=== PATIENT | male | born 1980 | race Two or more races ===

== ENCOUNTER 2024-10-24 17:45 | Emergency (ER) | payer MEDICAID, OTHER ==
[2024-10-24] MEDS ORDERED: KETOROLAC TROMETH 30 MG/ML 1ML VIAL IV ONE (18:15)
[2024-10-24] MEDS ORDERED: SODIUM CHLORIDE 0.9% 1,000 ML IV ONE (18:15)
--- NOTE | 2024-10-24 18:23 | ED.PDOC ---
General HPI Comments [age] y.o male presents to the ED for a chief complaint of left sided flank pain radiating to his abdomen associated with dysuria and nausea. Patient reports previous similar pain but never followed up for management and it eventually went away on its own. Patient denies any recent injuries, falls, trauma, fever, vomiting, testicle pain, discharge, or hematuria. No B symptoms. No history of SCD. No penile discharge. Chief Complaint: Anxiety Time Seen by MD: 17:56 Reviewed notes: Nurses Notes, Medications, Allergies Allergies: Coded Allergies: NO KNOWN ALLERGIES (Unverified , 10/24/24) Information Source: Patient Mode of Arrival: Ambulatory Severity: Moderate Timing: Days Duration: Since onset Onset: Spontaneous Symptoms: Dysuria History of: None Location: Abdomen, (L)Flank Modifying factors: None associated signs and symptoms: Abdominal Pain, Flank Pain, Dysuria Past Medical History PAST MEDICAL HISTORY: Denies Surgical History: Denies all surgeries Family History Family History: Reviewed,noncontributory to illness Social History Smoker: Non-Smoker Alcohol: Denies ETOH Use Drugs: Denies Drug Use Lives In: Home Constitutional: denies: chills, diaphoresis, fatigue, fever, malaise, sweats, weakness, others EENTM: denies: blurred vision, double vision, ear bleeding, ear discharge, ear drainage, ear pain, ear ringing, eye pain, eye redness, hearing loss, mouth pain, mouth swelling, nasal discharge, nose bleeding, nose congestion, nose pain, photophobia, tearing, throat pain, throat swelling, voice changes, others Respiratory: denies: cough, hemoptysis, orthopnea, SOB at rest, shortness of breath, SOB with excertion, stridor, wheezing, others Cardiovascular: denies: chest pain, dizzy spells, diaphoresis, Dyspnea on exertion, edema, irregular heart beat, left arm pain, lightheadedness, palpitations, PND, syncope, others Gastrointestinal: reports: abdominal pain, nausea; denies: abdomen distended, blood streaked bowels, constipated, diarrhea, dysphagia, difficulty swallowing, hematemesis, melena, poor appetite, poor fluid intake, rectal bleeding, rectal pain, vomiting, others Genitourinary: reports: flank pain; denies: burning, dysuria, frequency, hematu [place], incontinence, penile discharge, penile sore, pain, testicle pain, testicle swelling, urgency, others Neurological: denies: dizziness, fainting, headache, left sided numbness, left sided weakness, numbness, paresthesia, pre-existing deficit, right sided numbness, right sided weakness, seizure, speech problems, tingling, tremors, weakness, others Musculoskeletal: denies: back pain, gout, joint pain, joint swelling, muscle pain, muscle stiffness, neck pain, others Allergic/Immunocompromised: denies: Difficulty Healing, Frequent Infections, Hives, Itching, others Hematologic/Lymphatic: denies: anemia, blood clots, easy bleeding, easy bruising, swollen glands, others Endocrine: denies: excessive hunger, excessive sweating, excessive thirst, excessive urination, flushing, intolerance to cold, intolerance to heat, unexplained weight gain, unexplained weight loss, others Psychiatric: denies: anxiety, bipolar disorder, depression, hopeless, panic disorder, schizophrenia, sleepless, suicidal, others All Other Systems: Reviewed and Negative Physical Exam General Appearance: No Apparent Distress, Normal HEENT: Normal ENT Inspection, Pharynx Normal, TMs Normal Neck: Full Range of Motion, Non-Tender, Normal, Normal Inspection Respiratory: Chest Non-Tender, Lungs Clear, No Accessory Muscle Use, No Respiratory Distress, Normal Breath Sounds Cardiovascular: No Edema, No JVD, No Murmur, No Gallop, Normal Peripheral Pulses, Regular Rate/Rhythm Breast Exam: Deferred Gastrointestinal: No Organomegaly, Non Tender, No Pulsatile Mass, Normal Bowel Sounds, Soft, Other (No CVAT bilaterally, no rashes) Genitalia: Deferred Pelvic: Deferred Rectal: Deferred Extremities: No calf tenderness, Normal capillary refill, Normal inspection, Normal range of motion, Non-tender, No pedal edema Musculoskeletal : Apperance: Normal Neurologic: Alert, kersey department supervisor II-XII nml as Tested, No Motor Deficits, Normal Affect, Normal Mood, No Sensory Deficits Cerebellar Function: NOT DONE Reflexes: NOT DONE Skin: Dry, Normal Color, Warm Lymphatic: No Adenopathy Was a procedure done? Was a procedure done?: No Differential Diagnosis Kidney stone (Female): AAA, Aortic dissection, Cholelithiasis, Musculoskeletal pain, Pancreatitis, Pyelonephritis, Renal failure, Urinary obstruction, Urolithiasis, N/A Kidney stone (Male): AAA, Aortic dissection, Appendicitis train, Pancreatitis, Pyelonephritis, Urolithiasis Penile/Scrotal: Epidiymitis, STD, UTI, Testicular Torsion Urinary Problem (Male): Urethritis, Urolithiasis, UTI X-Ray, Labs, Meds, VS Lab Test 10/24/24 18:39 10/24/24 18:13 Range/Units Urine Color Yellow Yellow Urine Clarity Clear Clear Urine pH 6.5 5.0-9.0 Urine Specific [place] 1.026 1.001-1.035 Urine Protein Trace H Negative Urine Ketones Negative Negative Urine Blood 3+ H Negative /uL Urine Nitrite Negative Negative Urine Bilirubin Negative Negative Urine Urobilinogen Normal Negative mg/dL Urine Leukocyte Esterase Negative Negative /uL Urine RBC 95 0 - 3 /hpf Urine Microscopic WBC 1 0-3 /HPF Urine Squamous Epithelial Cells Few <5 /hpf Urine Bacteria Few H None Seen /hpf Urine Mucus Few None Seen Urine Glucose Normal Normal mg/dL White Blood Count 9.4 4.4-10.8 10^3/uL Red Blood Count 4.80 4.5-5.90 10^6/uL Hemoglobin 14.4 13.5-17.5 g/dL Hematocrit 42.7 41.0-53.0 % Mean Corpuscular Volume 89.0 80.0-100.0 fL Mean Corpuscular Hemoglobin 30.1 28.0-32.0 pg Mean Corpuscular Hemoglobin Concent 33.8 32.0-36.0 g/dL Red Cell Distribution Width 13.9 11.8-14.3 % Platelet Count 237 140-450 10^3/uL Mean Platelet Volume 8.9 6.9-10.8 fL Neutrophils (%) (Auto) 74.0 37.0-80.0 % Lymphocytes (%) (Auto) 18.2 10.0-50.0 % Monocytes (%) (Auto) 6.2 0.0-12.0 % Eosinophils (%) (Auto) 1.1 0.0-7.0 % Basophils (%) (Auto) 0.5 0.0-2.0 % Neutrophils # (Auto) 6.9 1.6-8.6 10 ^3/uL Lymphocytes # (Auto) 1.7 0.4-5.4 10 ^3/uL Monocytes # (Auto) 0.6 0-1.3 10 ^3/uL Eosinophils # (Auto) 0.1 0-0.8 10 ^3/uL Basophils # (Auto) 0 0-0.2 10 ^3/uL Nucleated Red Blood Cells 0.1 % Sodium Level 138 136-145 mmol/L Potassium Level 4.1 3.5-5.1 mmol/L Chloride Level 103 98-107 mmol/L Carbon Dioxide Level 27 20-31 mmol/L Anion Gap 8 5-15 Blood Urea Nitrogen 16 9-23 mg/dL Creatinine 1.10 0.700-1.30 mg/dL Glomerular Filtration Rate Calc 84 >90 mL/min BUN/Creatinine Ratio 14.5 10.0-20.0 Serum Glucose 199 H 74-106 mg/dL Lactic Acid Level 1.2 0.4-2.0 mmol/L Calcium Level 9.5 8.7-10.4 mg/dL Lipase 51 12-53 U/L X-Ray, Labs, Meds, VS Comment 44-year-old male here today with complaints of left flank pain and dysuria. Vital signs stable, afebrile. Physical exam as above without any acute findings. Labs with evidence of hyperglycemia without evidence of DKA/HHS. UA with evidence of hematuria concerning for UTI. Possible pyelonephritis given the patient's flank pain. Patient was given a dose of IV ceftriaxone in his started on oral antibiotics as well. I also instructed the patient to follow up with his primary care provider for a repeat UA to ensure that the hematuria resolves after antibiotics as I informed in the hematuria can be an early sign of bladder cancer or renal pathology so the follow up UA is very important and the patient expressed understanding of this. No allergies to antibiotics. Patient states his pain significantly resolved after the fluids and Toradol and antibiotics. Doubt testicular torsion, epididymitis, prostatitis, STD, appendicitis, diverticulitis, sepsis, or any other significant acute pathology. Patient was discharged home with his family her strict return precautions for persists in dysuria, hematuria, worsening abdominal pain, p.o. intolerance, fevers, testicular pain, or any other new or concerning symptoms. Patient discharged ambulating with a steady gait, tolerating p.o., in no distress. Images Reviewed?: Images reviewed and evaluated by me Time of 1ST Reevaluation: 18:22 Reevaluation 1ST: Unchanged Time of 2ND Reevaluation: 21:42 Reevaluation 2ND: Resolved Patient Education/Counseling: Diagnosis, Treatment, Prognosis Family Education/Counseling: Diagnosis, Treatment, Prognosis Departure 1 Departure Time of Disposition: 21:19 Impression: Primary Impression: Pyelonephritis Additional Impressions: Hyperglycemia Hematuria Disposition: HOME / SELF CARE / HOMELESS Condition: Stable e-Prescriptions Cephalexin Monohydrate (Cephalexin) 500 Mg Cap 500 MG PO Q6HR for 10 Days, #40 MG Prov: LEONARDO MA MD 10/24/24 Discharged With: Self, Spouse Critical Care Note Critical Care Time?: No Stability Stability form required: No I personally scribed for LEONARDO MA MD ([email or web address]) on 10/24/24 at 18:23. Electronically submitted by America Dunn ([facility]). LEONARDO MA MD Oct 24, 2024 18:23
[2024-10-24 18:34] LABS: Basophils # (auto) 0 10 ^3/uL (0-0.2); Basophils % (auto) 0.5 % (0.0-2.0); Eosinophils # (auto) 0.1 10 ^3/uL (0-0.8); Eosinophils % (auto) 1.1 % (0.0-7.0); Hematocrit 42.7 % (41.0-53.0); Hemoglobin 14.4 g/dL (13.5-17.5); Lymphocytes # (auto) 1.7 10 ^3/uL (0.4-5.4); Lymphocytes % (auto) 18.2 % (10.0-50.0); Mean Corpuscular Hemoglobin 30.1 pg (28.0-32.0); Mean Corpuscular Hgb Conc. 33.8 g/dL (32.0-36.0); Monocytes # (auto) 0.6 10 ^3/uL (0-1.3); Monocytes % (auto) 6.2 % (0.0-12.0); Neutrophils # (auto) 6.9 10 ^3/uL (1.6-8.6); Nucleated Red Blood Cells % 0.1 %; Platelet Count (auto) 237 10^3/uL (140-450); Red Cell Distribution Width 13.9 % (11.8-14.3); White Blood Cell 9.4 10^3/uL (4.4-10.8)
[2024-10-24 18:41] LABS: Anion Gap 8 (5-15); Calcium 9.5 mg/dL (8.7-10.4); Carbon Dioxide 27 mmol/L (20-31)
[2024-10-24 18:44] LABS: Chloride 103 mmol/L (98-107); Potassium 4.1 mmol/L (3.5-5.1); Sodium 138 mmol/L (136-145)
[2024-10-24 18:46] LABS: BUN/Creatinine Ratio 14.5 (10.0-20.0); Blood Urea Nitrogen 16 mg/dL (9-23)
[2024-10-24 18:49] LABS: Urine Bacteria FEW /hpf (None Seen); Urine Blood 3+ /uL (Negative); Urine Clarity Clear (Clear); Urine Color Yellow (Yellow); Urine Mucus FEW (None Seen); Urine Protein, UAD TRACE (Negative); Urine Specific Gravity 1.026 (1.001-1.035); Urine Squamous Epithelial Cell FEW /hpf (<5); Urine Urobilinogen Normal (Negative); Urine WBC 1 /HPF (0-3); Urine pH 6.5 (5.0-9.0)
[2024-10-24 18:49] LABS: Glucose 199 mg/dL (74-106)
--- NOTE | 2024-10-24 19:43 | DVH ---
Exam: CT CT AB PEL WO CON-NO ORAL OR IV History: eval for kidney stone on left Comparison Study: None available at time of dictation. TECHNIQUE: Multidetector CT of the abdomen was performed from lung bases to pubic symphysis. Imaging was performed without IV contrast. Axial, coronal and sagittal multiplanar reformats were obtained fr om the axial data set by the technologist. Radiation Dose Information: CT Dose: CTDI volume is 13.32 mGy. Dose-length product is 855.92 mGy*cm FINDINGS: Evaluation of solid organs is limited due to lack of intravenous contrast use. Findings: Lung Bases: No acute or significant lung base finding. Normal heart size. No pleural or pericardial effusion. Liver: The liver is normal in size. No focal lesions. Gallbladder and Biliary Tree: Unremarkable Spleen: Unremarkable Pancreas: The pancreas is grossly normal in appearance. Adrenal Glands: Unremarkable Kidneys: Kidneys are grossly normal without calculi or hydronephrosis. No nephrolithiasis or hydronep hrosis. Bladder: Grossly unremarkable for degree of distention. Bowel: The stomach is grossly normal in appearance. Small bowel and colon are normal in caliber and d istribution. The appendix is not visualized; however, no secondary findings of acute appendicitis id entified. Ascites: Absent Lymphadenopathy: No mesenteric, retroperitoneal or periportal lymphadenopathy. Abdominal Wall and Mesentery: Unremarkable. Vasculature: The visualized abdominal aorta is normal in size and caliber. Evaluation of abdominal a nd pelvic vessels is limited due to lack of intravenous contrast. Pelvic Organs: Unremarkable Musculoskeletal: No aggressive focal bony lesions, acute fractures or dislocation. Soft tissues: Unremarkable IMPRESSION: 1. No nephrolithiasis or hydronephrosis. No ureteral calculi no bladder calculi. 2. Radiation optimization: All CT scans at this facility use at least one of these dose optimization techniques: automated exposure control mA and/or kV adjustment per patient size (includes targeted e xams where dose is matched to clinical indication) or iterative reconstruction.
[2024-10-24] MEDS ORDERED: CEPH500C PO (21:26)
[2024-10-24] MEDS ORDERED: cefTRIAXone 1GM/50ML D5W 50 ML IV ONE (21:30)
== END 2024-10-24 20:55 | disposition left against medical advice (07) ==
LOC: ER 17:50
DX: N12 Tubulo-interstitial nephritis, not specified as acute or chronic (principal); R73.9 Hyperglycemia, unspecified; R31.9 Hematuria, unspecified
CPT/HCPCS: 36415; 74176; 80048; 81001; 83605; 83690; 85025; 99284; J1885

== ENCOUNTER 2024-10-24 18:03 | Emergency (ER) | payer SELFPAY ==
[~2024-10-24] VITALS: Ht 175.3 cm; Wt 103.0 kg
[2024-10-24 18:05] VITALS: TEMP 98
--- NOTE | 2024-10-24 18:30 | ED.PDOC ---
General HPI Comments 44 y.o male presents to the ED for a chief complaint of left sided flank pain radiating to his abdomen associated with dysuria and nausea. Patient reports previous similar pain but never followed up for management and it eventually went away on its own. Patient denies any recent injuries, falls, trauma, fever, vomiting, testicle pain, discharge, or hematuria. No B symptoms. No history of SCD. No penile discharge. Chief Complaint: Flank Pain Time Seen by MD: 17:56 Primary Care Provider: none Reviewed notes: Nurses Notes, Medications, Allergies Allergies: Coded Allergies: NO KNOWN ALLERGIES (Unverified , 10/24/24) Home Meds Active Scripts Cephalexin Monohydrate (Cephalexin) 500 Mg Cap, 500 MG PO Q6HR for 10 Days, #40 MG Prov:LEONARDO MA MD 10/24/24 Information Source: Patient Mode of Arrival: Ambulatory Severity: Moderate Timing: Days Duration: Since onset Onset: Spontaneous Symptoms: Dysuria Location: Abdomen, (L)Flank associated signs and symptoms: Flank Pain, Dysuria Past Medical History PAST MEDICAL HISTORY: Denies Surgical History: Denies all surgeries Constitutional: denies: chills, diaphoresis, fatigue, fever, malaise, sweats, weakness, others EENTM: denies: blurred vision, double vision, ear bleeding, ear discharge, ear drainage, ear pain, ear ringing, eye pain, eye redness, hearing loss, mouth pain, mouth swelling, nasal discharge, nose bleeding, nose congestion, nose pain, photophobia, tearing, throat pain, throat swelling, voice changes, others Respiratory: denies: cough, hemoptysis, orthopnea, SOB at rest, shortness of breath, SOB with excertion, stridor, wheezing, others Cardiovascular: denies: chest pain, dizzy spells, diaphoresis, Dyspnea on exertion, edema, irregular heart beat, left arm pain, lightheadedness, palp itations, PND, syncope, others Gastrointestinal: reports: abdominal pain; denies: abdomen distended, blood streaked bowels, constipated, diarrhea, dysphagia, difficulty swallowing, hematemesis, melena, nausea, poor appetite, poor fluid intake, rectal bleeding, rectal pain, vomiting, others Genitourinary: reports: dysuria, flank pain; denies: burning, frequency, hematuria, incontinence, penile discharge, penile sore, pain, testicle pain, testicle swelling, urgency, others Neurological: denies: dizziness, fainting, headache, left sided numbness, left sided weakness, numbness, paresthesia, pre-existing deficit, right sided numbness, right sided weakness, seizure, speech problems, tingling, tremors, weakness, others Musculoskeletal: denies: back pain, gout, joint pain, joint swelling, muscle pain, muscle stiffness, neck pain, others Integumetry: denies: bruises, change in color, change in hair/nails, dryness, laceration, lesions, lumps, rash, wounds, others Allergic/Immunocompromised: denies: Difficulty Healing, Frequent Infections, Hives, Itching, others Hematologic/Lymphatic: denies: anemia, blood clots, easy bleeding, easy bruising, swollen glands, others Endocrine: denies: excessive hunger, excessive sweating, excessive thirst, excessive urination, flushing, intolerance to cold, intolerance to heat, unexplained weight gain, unexplained weight loss, others Psychiatric: denies: anxiety, bipolar disorder, depression, hopeless, panic disorder, schizophrenia, sleepless, suicidal, others All Other Systems: Reviewed and Negative Physical Exam General Appearance: No Apparent Distress, Normal HEENT: Normal ENT Inspection, Pharynx Normal, TMs Normal Neck: Full Range of Motion, Non-Tender, Normal, Normal Inspection Respiratory: Chest Non-Tender, Lungs Clear, No Accessory Muscle Use, No Respiratory Distress, Normal Breath Sounds Cardiovascular: No Edema, No JVD, No Murmur, No Gallop, Normal Peripheral Pulses, Regular Rate/Rhythm Breast Exam: Deferred Gastrointestinal: No Organomegaly, Non Tender, No Pulsatile Mass, Normal Bowel Sounds, Soft, Other (No CVAT bilaterally, no rashes) Genitalia: Deferred Pelvic: Deferred Rectal: Deferred Extremities: No calf tenderness, Normal capillary refill, Normal inspection, Normal range of motion, Non-tender, No pedal edema Musculoskeletal : Apperance: Normal Neurologic: Alert, lab director II-XII nml as Tested, No Motor Deficits, Normal Affect, Normal Mood, No Sensory Deficits Cerebellar Function: NOT DONE Reflexes: NOT DONE Skin: Dry, Normal Color, Warm Lymphatic: No Adenopathy Was a procedure done? Was a procedure done?: No Differential Diagnosis Kidney stone (Female): AAA, Aortic dissection, Appendicitis, Bowel obstruction, Cholelithiasis, Hepatitis, Musculoskeletal pain, Pancreatitis, Pyelonephritis, Renal failure, Urinary obstruction, Urolithiasis, N/A Kidney stone (Male): AAA, Aortic dissection, Cholelithiasis, Pyelonephritis, Renal failure, Strain Penile/Scrotal: Epidiymitis, Prostatitis, STD, UTI, Testicular Torsion Urinary Problem (Male): UTI Urinary Problem (Female): UTI X-Ray, Labs, Meds, VS Vital Signs Date Time Temp Pulse Resp B/P (MAP) Pulse Ox O2 Delivery O2 Flow Rate FiO2 10/24/24 18:44 65 18 98 Room Air 10/24/24 18:44 67 18 127/81 (96) 98 10/24/24 18:36 85 16 98 Room Air* 0 21 10/24/24 18:05 98.0 71 19 147/92 (110) 100 98.0 Current Medications Medications (Trade) Dose Ordered Sig/Estella Route Start Time Stop Time Status Last Admin Sodium Chloride 1,000 ml @ 1,000 mls/hr Q1H ONCE IV 10/24/24 18:15 10/24/24 19:14 DC 10/24/24 18:36 Ketorolac Tromethamine (Toradol Injection) 15 mg ONCE ONCE IV 10/24/24 18:15 10/24/24 18:16 DC 10/24/24 18:36 X-Ray, Labs, Meds, VS Comment 44-year-old male here today with complaints of left flank pain and dysuria. Vital signs stable, afebrile. Physical exam as above without any acute findings. Labs with evidence of hyperglycemia without evidence of DKA/HHS. UA with evidence of hematuria concerning for UTI. Possible pyelonephritis given the patient's flank pain. Patient was given a dose of IV ceftriaxone in his started on oral antibiotics as well. I also instructed the patient to follow up with his primary care provider for a repeat UA to ensure that the hematuria resolves after antibiotics as I informed in the hematuria can be an early sign of bladder cancer or renal pathology so the follow up UA is very important and the patient expressed understanding of this. No allergies to antibiotics. Patient states his pain significantly resolved after the fluids and Toradol and antibiotics. Doubt testicular torsion, epididymitis, prostatitis, STD, appendicitis, diverticulitis, sepsis, or any other significant acute pathology. Patient was discharged home with his family her strict return precautions for persists in dysuria, hematuria, worsening abdominal pain, p.o. intolerance, fevers, testicular pain, or any other new or concerning symptoms. Patient disch arged ambulating with a steady gait, tolerating p.o., in no distress. Time of 1ST Reevaluation: 18:30 Reevaluation 1ST: Unchanged Time of 2ND Reevaluation: 21:42 Reevaluation 2ND: Improved Patient Education/Counseling: Diagnosis, Treatment, Prognosis Family Education/Counseling: No Family Present Departure 1 Departure Time of Disposition: 21:30 Impression: Primary Impression: Pyelonephritis Additional Impression: Hyperglycemia Disposition: HOME / SELF CARE / HOMELESS Condition: Stable e-Prescriptions Cephalexin Monohydrate (Cephalexin) 500 Mg Cap 500 MG PO Q6HR for 10 Days, #40 MG Prov: LEONARDO MA MD 10/24/24 Discharged With: Self, Spouse Critical Care Note Critical Care Time?: No Stability Stability form required: No I personally scribed for LEONARDO MA MD ([email or web address]) on 10/24/24 at 18:30. Electronically submitted by America Dunn ([facility]). LEONARDO MA MD Oct 24, 2024 18:30
[2024-10-24 18:36] VITALS: PULSE 85; RESP 16; O2SAT 98
[2024-10-24] MEDS: KETOROLAC TROMETH 30 MG/ML 1ML VIAL IV ONE (18:36)
[2024-10-24] MEDS: SODIUM CHLORIDE 0.9% 1,000 ML IV ONE (18:36)
[2024-10-24 18:44] VITALS: BP 127/81; PULSE 65; RESP 18; O2SAT 98
[2024-10-24] MEDS ORDERED: CEPH500C PO (21:26)
[2024-10-24] MEDS: cefTRIAXone 1GM/50ML D5W 50 ML IV ONE (21:41)
== END 2024-10-24 22:04 | disposition home or self-care (01) ==
LOC: ER 18:06
DX: N12 Tubulo-interstitial nephritis, not specified as acute or chronic (principal); R73.9 Hyperglycemia, unspecified
CPT/HCPCS: 96361; 96374; 96375; 99284; J0696; J7030